=== PATIENT | female | born 1950 | race Caucasian/White ===

== ENCOUNTER 2023-02-27 22:44 | Emergency (ER) | payer MEDICARE, BC ==
[~2023-02-27 22:44] MED LIST: ALBU8.5H17 INH; ANAS1TAB10 PO; CBD PO; DOMPERIDONE PO; FLUO40CA PO; GEMF600T89 PO; HYDR-3686 PO; HYDR-3972 PO; LINA290C PO; LISI20TA28 PO; MORP-92 PO; OMEP20CA16 PO; PHEN30CA21 PO; PROC-8 PO; TOPI-253 PO; TRAZ300T2 PO; VENL75CA61 PO
== END 2023-02-27 23:44 | disposition left against medical advice (07) ==
LOC: ER 22:46
DX: Z00.8 Encounter for other general examination (principal); Z53.21 Procedure and treatment not carried out due to patient leaving prior to being seen by health care provider